=== PATIENT | female | born 1980 | race Caucasian/White ===

== ENCOUNTER → 2016-06-27 | Outpatient (REF) | payer OTHER ==
[2016-06-27 13:39] LABS: MEAN CORPUSCULAR HGB CONC 33.4 g/dl (32.0-36.5); MEAN CORPUSCULAR VOLUME 92.7 fl (80.0-96.0); RED CELL DISTRIBUTION WIDTH 12.6 % (11.5-14.5); WHITE BLOOD COUNT 12.7 K/mm3 (4.0-10.0)
[2016-06-27 13:55] LABS: ALBUMIN 3.7 GM/DL (3.2-5.2); ALBUMIN/GLOBULIN RATIO 1.03 (1.00-1.93); ALKALINE PHOSPHATASE 58 U/L (45-117); ALT/SGPT 20 U/L (12-78); ANION GAP 7 MEQ/L (8-16); AST/SGOT 12 U/L (15-37); BILIRUBIN,TOTAL 0.3 MG/DL (0.2-1.0); BLOOD UREA NITROGEN 13 MG/DL (7-18); CALCIUM LEVEL 8.3 MG/DL (8.5-10.1); CARBON DIOXIDE LEVEL 26 MEQ/L (21-32); CHLORIDE LEVEL 107 MEQ/L (98-107); CHOLESTEROL LEVEL 205 MG/DL (<200); CREATININE FOR GFR 0.82 MG/DL (0.55-1.02); FREE T4 1.22 NG/DL (0.76-1.46); GLOMERULAR FILTRATION RATE > 60.0 (>60); GLUCOSE, FASTING 86 MG/DL (70-105); POTASSIUM SERUM 4.5 MEQ/L (3.5-5.1); SODIUM LEVEL 140 MEQ/L (136-145); TOTAL PROTEIN 7.3 GM/DL (6.4-8.2); TRIGLYCERIDES LEVEL 89 MG/DL (<150)
== END ==
LOC: M LAB REF 12:58
PROVIDERS: ATTEND Nurse Practitioner Family
DX: R61 Generalized hyperhidrosis (principal); R63.1 Polydipsia; Z13.0 Encounter for screening for diseases of the blood and blood-forming organs and certain disorders involving the immune mechanism; Z13.220 Encounter for screening for lipoid disorders

== ENCOUNTER → 2016-09-12 | Outpatient (CLI) | payer OTHER ==
--- NOTE | 2016-09-13 04:11 | REP ---
Clinical: Chest pain and cough . Comparison: 02/24/2015 . Technique: PA and lateral. Findings: The mediastinum and cardiac silhouette are normal. The lung nunez are clear and without acute consolidation or pneumothorax. Blunting of the costophrenic angles on frontal and lateral radiographs remains stable compared to prior examination and may reflect chronic pleural reactions although subtle acute small effusion cannot be excluded. The skeletal structures are intact and normal. Impression: 1. No acute cardiopulmonary process. 2. Chronic blunting to the costophrenic angles suggests chronic pleural reactions. However subtle superimposed pleural effusion cannot be excluded. Signed by Matthew Harden MD 09/13/2016 04:02 A
== END ==
LOC: M SMT 15:15
PROVIDERS: ATTEND Nurse Practitioner Adult Health
DX: R05 Cough (principal)

== ENCOUNTER → 2016-09-26 | Outpatient (REF) | payer OTHER | LOC: M LAB REF 17:32 | PROVIDERS: ATTEND Nurse Practitioner Family | DX: Z12.4 Encounter for screening for malignant neoplasm of cervix (principal) ==

== ENCOUNTER → 2016-10-10 | Outpatient (CLI) | payer OTHER ==
[~2016-10-10] MED LIST: METHACHOLINE KIT (J7674) INH ONE
--- NOTE | 2016-10-10 08:49 | PFTRPT ---
Tech: Bryanna LOGAN RRT Age: 36 Sex: Female Race: Height: 63.00 Inches Weight: 173.00 Lbs BSA: 1.82 Diagnosis: R05 METHACHOLINE CHALLENGE REPORT: ORDERING PROVIDER: WAN Gonzalez DATE OF SERVICE: 10/10/16 INTERPRETATION: The study was of excellent technical quality. Under protocol, methacholine was administered. At a dose of 0.25 mg (1.375 CDUs), a 34% decline in the FEV1 was noted. The PC20 of 0.05 is significant. Flow rates returned to baseline post bronchodilator administration. IMPRESSION: Positive methacholine challenge study. MTDD
== END ==
LOC: M CARPUL 07:50
PROVIDERS: ATTEND Nurse Practitioner Adult Health
DX: R05 Cough (principal)